=== PATIENT | male | born 1970 | race Caucasian/White ===

== ENCOUNTER → 2021-11-07 08:07 | Outpatient (CLI) | payer BC, SELFPAY ==
[2021-11-07 21:43] LABS: COVID-19 CEPHEID PCR (VTM/NP) Negative (Negative)
== END ==
PROVIDERS: PCP Family Medicine; Visit Provider Family Medicine
DX: Z01.812 Encounter for preprocedural laboratory examination (principal); Z20.822 Contact with and (suspected) exposure to COVID-19
CPT/HCPCS: U0003; U0005

== ENCOUNTER 2021-11-09 09:47 | Day surgery (SDC) | payer BC, SELFPAY ==
[2021-11-09 10:05] VITALS: BP 143/93; PULSE 103; RESP 16; TEMP 36.2; O2SAT 97
[2021-11-09 10:11] VITALS: BMI 27.9
[2021-11-09] MEDS: LACTATED RINGERS 1,000 ML 200 ML IV (10:36)
--- NOTE | 2021-11-09 11:11 | PM.HP.1 ---
History of Present Illness History of Present Illness Date Patient Seen: 11/09/21 Time Patient Seen: 11:12 Chief complaint: SDC Narrative: The patient presents for colorectal screening. They have never had any previous examination for such. No personal or family history of colon cancer. On further history denies any recent gastrointestinal symptoms. No nausea, vomiting, abdominal pain, loss of appetite, unexplained weight loss, change in bowel habits, diarrhea, constipation, melena, hematochezia, or bright red blood per rectum. Patient History Medical History Encounter for general adult medical examination with abnormal findings Impacted cerumen of left ear Impacted cerumen, bilateral Routine screening for STI (sexually transmitted infection) Screening for colon cancer Screening for prostate cancer Family & Social History Social History: household members spouse Tobacco & Substance use: Smoking Status Never smoker alcohol intake current alcohol intake frequency a few times a week Substance Use Type does not use Meds Home Medications and Allergies Home Medications Medication Instructions Recorded Confirmed Type No Known Home Medications 11/09/21 11/09/21 History Allergies Allergy/AdvReac Type Severity Reaction Status Date / Time No Known Drug Allergies Allergy Verified 11/09/21 10:10 Exam Vital Signs (past 8 hours): - 11/09/21 10:05 Temperature 97.2 F L Pulse Rate 103 H Respiratory Rate 16 Blood Pressure 143/93 H Pulse Oximetry 97 Oxygen Delivery Method Room Air Oxygen Delivery Method Room Air Narrative Exam Narrative: General adult male alert oriented no acute distress Chest nonlabored respiration Abdomen soft nontender nondistended Assessment & Plan Assessment & Plan narrative: The patient requires colorectal screening and colonoscopy is recommended. Technical details were discussed. Risks, benefits, alternatives explained. Risks including but not limited to myocardial infarction, aspiration, bleeding, pain, missed lesion, incomplete examination, need for further radiographic studies, colonic perforation, and need for major abdominal surgery were discussed. All questions were answered to their satisfaction, and they are in agreement with this plan. Time Spent With Patient Critical Care time: I spent a total of [] minutes of critical care time on this patient's care today; this time is exclusive of procedural time.
[2021-11-09] MEDS: MIDAZOLAM 5 MG/5 ML VIAL IV (11:24)
[2021-11-09] MEDS: fentaNYL 250 MCG/5 ML INJ 150 MCG IV (11:24)
--- NOTE | 2021-11-09 11:39 | P.OP.COLON_ITS ---
Operative Date/Time/Diagnoses Date of procedure: 11/09/21 Time of procedure: 11:39 Pre-op diagnosis: Screening Post-op diagnosis: same Procedure & Clinicians Study performed: Colonoscopy Same procedure as scheduled: Yes Indications: Screening Surgeon: John Mckeon Procedure Notes Procedure in detail: Medications: Conscious sedation using 5 mg IV midazolam and 150 mcg IV of fentanyl The history and physical was performed/updated and the patient is ASA class is 1. The procedure was discussed in detail with the patient. Potential risks complications including infection, bleeding, missed diagnosis, perforation, need for surgery, and were explained. Their questions were answered and informed consent was obtained. Patient was brought to the procedure room and placed standard monitoring equipment. The patient's vital signs were monitored continuously throughout the entire procedure. Prior to starting time-out was performed. The patient was placed in the left lateral recumbent position. Procedural sedation was adminis tered. Examination began with a thorough inspection of the perianal area there was no evidence of fissures, fistulae, external hemorrhoids or cutaneous malignancy. The colonoscopy scope was then placed into the anal canal and was advanced to the cecum, which was identified by the ileocecal valve, the appendiceal orifice and the confluence of the taenia. The scope was then slowly withdrawn examining colon thoroughly in all directions, irrigating it of any residual stool. FINDINGS 1. Normal healthy colon. No masses or polyps. 2. Internal hemorrhoids-mild The patient tolerated the procedure well. They will be discharged once criteria are met. The prep was of good/excellent quality. The withdrawl time was 6 minutes. The sedation time was 19 minutes. Specimen(s): none sent Complications: none Impression: Normal colonoscopy Post-procedure Recommendations: Colonoscopy in 10 years Disposition: same day surgery
[2021-11-09 11:43] VITALS: BP 106/82; PULSE 89; RESP 12; TEMP 35.8; O2SAT 95
[2021-11-09 11:48] VITALS: BP 134/76; PULSE 99; RESP 15; O2SAT 95
[2021-11-09 11:53] VITALS: BP 117/84; PULSE 94; RESP 16; O2SAT 96
[2021-11-09 11:58] VITALS: BP 123/91; PULSE 92; RESP 16; O2SAT 96
[2021-11-09 12:00] VITALS: BP 110/76; PULSE 94; RESP 16; O2SAT 96
== END 2021-11-09 12:49 | disposition home or self-care (01) ==
PROVIDERS: PCP Family Medicine; Referring Provider Surgery; Visit Provider Surgery
PROC: 0DJD8ZZ Inspection of Lower Intestinal Tract, Via Natural or Artificial Opening Endoscopic (ICD-10-PCS; CPT 45378; principal; 2021-11-09 11:30)
DX: Z12.11 Encounter for screening for malignant neoplasm of colon (principal); K64.8 Other hemorrhoids
CPT/HCPCS: G0121; 99152; J2250; J3010

== ENCOUNTER → 2023-06-03 08:02 | Outpatient (CLI) | payer BC, SELFPAY ==
[2023-06-03 18:53] LABS: Alanine Aminotransferase 30 IU/L (<50); Albumin Globulin Ratio 1.3 (1.0-2.8); Alkaline Phosphatase 64 U/L (38-126); Aspartate Aminotransferase 31 IU/L (17-59); Bilirubin Total 0.8 mg/dL (0.2-1.3); Blood Urea Nitrogen 17 mg/dL (9-20); Calcium 9.1 mg/dL (8.4-10.2); Carbon Dioxide 25 mmol/L (22-32); Chloride 102 mmol/L (98-107); Cholesterol 174 mg/dL (140-199); Estimated Glomerular Filt Rate > 60 mL/min (>60); Glucose 96 mg/dL (70-100); HDL Cholesterol 43 mg/dL (40-60); HEMOLYSIS 26 (0-50); LDL Cholesterol Calculated 110 mg/dL (<100); Sodium 137 mmol/L (137-145); Triglycerides 105 mg/dL (35-150)
[2023-06-03 19:19] LABS: Prostate Specific Antigen 0.879 ng/mL (0.10-4.00)
== END ==
PROVIDERS: PCP Physician Assistant; Visit Provider Physician Assistant
DX: Z12.5 Encounter for screening for malignant neoplasm of prostate (principal); R03.0 Elevated blood-pressure reading, without diagnosis of hypertension; Z13.6 Encounter for screening for cardiovascular disorders
CPT/HCPCS: 80053; 80061; 84153